=== PATIENT | female | born 1980 | race Caucasian/White ===

== ENCOUNTER 2024-04-30 15:08 | Emergency (ER) | payer BC ==
[2024-04-30 15:47] VITALS: BP 137/91; PULSE 83; RESP 18; TEMP 98.1; BMI 24.3
== END 2024-04-30 15:56 | disposition home or self-care (01) ==
LOC: FER 15:08
DX: S80.12XA Contusion of left lower leg, initial encounter (principal); W22.8XXA Striking against or struck by other objects, initial encounter
CPT/HCPCS: 93971-LT; 99284-25

== ENCOUNTER 2024-06-14 09:53 | Emergency (ER) | payer BC ==
[2024-06-14 10:07] VITALS: RESP 15; BMI 25.1
[2024-06-14] MEDS ORDERED: ACETAMINOPHEN INJECTION 100 ML ONE (10:44)
[2024-06-14] MEDS ORDERED: MECLIZINE HCL 25 MG TABLET (FP) ONE (10:44)
[2024-06-14] MEDS: MECLIZINE HCL 25 MG TABLET (FP) PO ONE (10:50)
[2024-06-14] MEDS: SODIUM CHLORIDE 1,000 ML IV STA (11:00)
[2024-06-14 11:31] LABS: HEMATOCRIT 40.8 % (32.4-45.2); HEMOGLOBIN 12.7 G/dL (10.7-15.3); MCH 26.9 pg (25.7-33.7); MCHC 31.1 g/dl (32.0-36.0); MEAN CELL VOLUME 86.4 fl (80-96); MEAN PLT VOLUME 9.2 fl (7.5-11.1); PLATELET COUNT 295.2 10^3/uL (134-434); RBC 4.72 10^6/uL (3.60-5.2); RDW 16.4 % (11.6-15.6); WHITE BLOOD COUNT 6.3 10^3/uL (4.0-10.8)
[2024-06-14 11:44] LABS: ALBUMIN 4.3 g/dl (3.4-5.0); ALK PHOS 53 U/L (45-117); ANION GAP 6 mmol/L (4-13); BILIRUBIN,TOTAL 0.6 mg/dl (0.2-1); CALCIUM 9.6 mg/dl (8.5-10.1); CHLORIDE 106 mmol/L (98-107); CO2 26 mmol/L (21-32); CREATININE 0.7 mg/dl (0.6-1.3); GLUCOSE,RANDOM 91 mg/dl (74-106); POTASSIUM 4.2 mmol/L (3.5-5.1); SGOT/AST 12 U/L (15-37); SGPT/ALT 10 U/L (7-52); SODIUM 138 mmol/L (136-145); TOT PROT 6.9 g/dl (6.4-8.2)
[2024-06-14] MEDS: ACETAMINOPHEN 1000 MG/100 ML BAG IVPB ONE (12:13)
[2024-06-14 12:21] VITALS: BP 118/84; PULSE 64; TEMP 97.7
[2024-06-14 12:23] LABS: ANISOCYTOSIS 1+; PLATELET ESTIMATE ADEQUATE
== END 2024-06-14 14:58 | disposition home or self-care (01) ==
LOC: FER 09:53
PROC: 3E0337Z Introduction of Electrolytic and Water Balance Substance into Peripheral Vein, Percutaneous Approach (ICD-10-PCS; principal; 2024-06-14)
DX: R55 Syncope and collapse (principal); R42 Dizziness and giddiness; R20.0 Anesthesia of skin; W01.198A Fall on same level from slipping, tripping and stumbling with subsequent striking against other object, initial encounter
CPT/HCPCS: 36415; 70450-TC; 70551-TC; 80053; 84484; 85027; 93005; 99285-25